=== PATIENT | female | born 1960 | race Caucasian/White ===

== ENCOUNTER 2025-03-22 16:41 | Emergency (ER) | payer MEDICARE, BC ==
[2025-03-22] MEDS ORDERED: Acetaminophen/HYDROcodone 325-5 MG Tab PO ONE (16:42)
[2025-03-22] MEDS ORDERED: Lidocaine 1% 5 ML VIAL INFILT ONE (16:42)
[2025-03-22] MEDS: Acetaminophen/HYDROcodone 325-10 MG Tab PO ONE (19:17)
[2025-03-22 19:35] VITALS: BP 154/98; PULSE 101
[2025-03-22] MEDS: Diphtheria,Pertussis(Acell),Tetanus Vaccine 0.5 ML Syringe IM ONE (20:07)
== END 2025-03-22 20:15 | disposition home or self-care (01) ==
LOC: FB.ED 16:41
DX: S01.81XA Laceration without foreign body of other part of head, initial encounter (principal); S80.01XA Contusion of right knee, initial encounter; Z79.899 Other long term (current) drug therapy; W01.0XXA Fall on same level from slipping, tripping and stumbling without subsequent striking against object, initial encounter
CPT/HCPCS: 12014; 70450; 73562-RT; 90471; 90715; 99284-25; A9270-GY; J2003